=== PATIENT | male | born 1960 | race Caucasian/White ===

== ENCOUNTER 2022-01-20 21:11 | Emergency (ER) | payer OTHER ==
[~2022-01-20] VITALS: Ht 170.2 cm; Wt 75.3 kg
[2022-01-20] MEDS ORDERED: KETOROLAC TROMETHAMINE 60 MG/2 ML VIAL IM ONE (21:30)
[2022-01-20] MEDS ORDERED: KETOROLAC TROMETHAMINE 60 MG/2 ML VIAL ONE (22:01)
[2022-01-20] MEDS ORDERED: HYDROCODONE/APAP 5MG-325MG TAB PO ONE (22:15)
[2022-01-20] MEDS ORDERED: HYDROCODONE/APAP 5MG-325MG TAB ONE (22:25)
[2022-01-20] MEDS ORDERED: NAPROSYN500 MG PO (22:51)
[2022-01-20 23:03] VITALS: BP 124/81
== END 2022-01-20 23:03 | disposition home or self-care (01) ==
LOC: FSED 21:31
DX: S63.8X2A Sprain of other part of left wrist and hand, initial encounter (principal); X50.1XXA Overexertion from prolonged static or awkward postures, initial encounter; Y92.89 Other specified places as the place of occurrence of the external cause; F17.210 Nicotine dependence, cigarettes, uncomplicated
CPT/HCPCS: 29125; 73110; 73130; 96372; 99283; J1885